=== PATIENT | male | born 1940 | race Caucasian/White ===

== ENCOUNTER → 2016-04-20 | Outpatient (CLI) | payer MEDICARE, OTHER | LOC: GMAL 11:23 | PROVIDERS: ATTEND Family Medicine | DX: N18.3 Chronic kidney disease, stage 3 (moderate) (principal) ==

== ENCOUNTER → 2016-06-15 | Outpatient (CLI) | payer MEDICARE, OTHER | END | disposition home or self-care (01) | LOC: GMAL 14:37 | PROVIDERS: ATTEND Family Medicine | DX: D51.3 Other dietary vitamin B12 deficiency anemia (principal); R97.20 Elevated prostate specific antigen [PSA]; E55.9 Vitamin D deficiency, unspecified; D53.9 Nutritional anemia, unspecified; R79.9 Abnormal finding of blood chemistry, unspecified | CPT/HCPCS: 82306; 82607; 82728; 83540; 83550; 83735; G0103 ==

== ENCOUNTER → 2016-06-24 | Outpatient (CLI) | payer MEDICARE, OTHER ==
--- NOTE | 2016-06-24 09:43 | CT ---
EXAM DESCRIPTION: Abdoment/Pelvis w/o Contrast CLINICAL HISTORY: ABN LIVER FUNCTION COMPARISON: None. TECHNIQUE: CT of the abdomen and pelvis was performed without contrast. Multiple axial images and multiplanar reconstructions were generated. FINDINGS: No acute findings within the lung bases. Multilevel degenerative change with significant facet degeneration the lower lumbar spine laminectomy of S1. Multiple hypodensities noted within an enlarged spleen. There are a few hypodensities noted within the liver on today's exam. The largest is seen along the posterior right hepatic lobe measuring 2.6 cm in diameter. The gallbladder is unremarkable. Bilateral adrenal glands and the pancreas are unremarkable. Bilateral kidneys are atrophic with multiple small cysts noted. The appendix is normal. The colon is evidence of diverticulosis. No evidence of diverticulitis. Small bowel is unremarkable. Urinary bladder is nondistended and not evaluated. The prostate measures 5 cm in diameter and is not enlarged. The abdominal aorta demonstrates atherosclerotic disease, but is not aneurysmal. IMPRESSION: 1. Today's exam demonstrates hypodensities noted within the kidneys, spleen and liver. These are likely compatible with cysts. If the patient has a possibility of a primary malignancy then an MRI or CT with contrast is suggested. If contrast cannot be administered then an ultrasound is suggested to evaluate these hypodensities. 2. Age-related findings as above. 3. No inflammatory changes on today's study. Electronically signed by: Jeferson Duff MD 06/24/2016 9:42 AM CDT
== END | disposition home or self-care (01) ==
LOC: CT 09:06
PROVIDERS: ATTEND Family Medicine
DX: R94.5 Abnormal results of liver function studies (principal)

== ENCOUNTER → 2016-07-07 | Outpatient (CLI) | payer MEDICARE, OTHER | END | disposition home or self-care (01) | LOC: GMAL 12:21 | PROVIDERS: ATTEND Family Medicine | DX: R97.20 Elevated prostate specific antigen [PSA] (principal) ==

== ENCOUNTER → 2016-07-21 | Outpatient (CLI) | payer MEDICARE, OTHER | LOC: GMAL 14:27 | PROVIDERS: ATTEND Family Medicine | DX: E29.1 Testicular hypofunction (principal) ==

== ENCOUNTER → 2016-07-22 | Outpatient (CLI) | payer MEDICARE, OTHER ==
--- NOTE | 2016-07-24 06:02 | MRI ---
EXAM DESCRIPTION: Noncontrast MRI of the right shoulder CLINICAL HISTORY: Shoulder pain COMPARISON: None TECHNIQUE: Multiplanar, multi sequence MRI images of the right shoulder were obtained without intra-articular contrast. FINDINGS: Marked ill definition and increased signal of the distal supraspinatus tendon near its insertion. There is favored to be a small full-thickness anterior leading edge supraspinatus tendon tear with minimal retraction. This measures approximately 8 mm on coronal image eight. There is a geographic region of bone marrow edema with a subtle rounded region of fatty marrow sparing within the region of edema centrally. This may represent contusive injury or be related to rotator cuff tear. There may be a small underlying greater tuberosity fracture. Correlate with plain films if not already performed. There is fluid decompressing into the subdeltoid/subacromial bursa as well as into the subcoracoid bursa. Infraspinatus, teres minor, and subscapularis tendons appear intact. No volumetric atrophy or fatty infiltration of the rotator cuff musculature. Long head of the biceps is well situated within the intertubercular groove. Biceps labral anchor is intact. Labrum is grossly intact. Severe degenerative changes of the acromioclavicular joint with joint effusion, osteophytosis as well as mild periarticular edema.. Type 2 acromion is noted. Glenohumeral joint cartilage is intact. No large joint effusion or loose body. Marrow signal is otherwise unremarkable without fracture or subluxation. IMPRESSION: 1. Small full-thickness tear of the anterior leading edge of the supraspinatus tendon with resultant fluid decompressing into the subdeltoid bursa. There is marked periarticular soft tissue edema about the anterior aspect of the humeral head as well as bone marrow edema in the greater tuberosity as outlined above. This may represent reactive marrow changes from rotator cuff pathology or a small fracture. Correlate with radiographs of the right shoulder is not performed. 2. Severe AC joint osteoarthrosis. Electronically signed by: Carmine Zaman MD 07/24/2016 6:02 AM CDT
== END | disposition home or self-care (01) ==
LOC: MRI 11:03
PROVIDERS: ATTEND Family Medicine
DX: M25.511 Pain in right shoulder (principal)

== ENCOUNTER → 2016-09-28 | Outpatient (CLI) | payer MEDICARE, OTHER | LOC: GMAL 14:50 | PROVIDERS: ATTEND Family Medicine | DX: E29.1 Testicular hypofunction (principal) ==

== ENCOUNTER → 2017-04-01 | Outpatient (CLI) | payer MEDICARE, OTHER | LOC: GMAB 13:44 | PROVIDERS: ATTEND Family Medicine | DX: M77.22 Periarthritis, left wrist (principal) ==

== ENCOUNTER → 2018-05-09 | Outpatient (CLI) | payer MEDICARE, OTHER | LOC: GMAL 14:48 | PROVIDERS: ATTEND Family Medicine | DX: D51.3 Other dietary vitamin B12 deficiency anemia (principal); E55.9 Vitamin D deficiency, unspecified ==

== ENCOUNTER → 2018-09-12 | Outpatient (CLI) | payer MEDICARE, OTHER | LOC: LAB.O 10:25 | PROVIDERS: ATTEND Family Medicine | DX: D63.8 Anemia in other chronic diseases classified elsewhere (principal) ==

== ENCOUNTER → 2019-01-09 | Outpatient (CLI) | payer MEDICARE, OTHER | LOC: GMAL 14:16 | PROVIDERS: ATTEND Family Medicine | DX: R97.20 Elevated prostate specific antigen [PSA] (principal); R53.83 Other fatigue; I10 Essential (primary) hypertension; E78.49 Other hyperlipidemia ==

== ENCOUNTER → 2019-05-28 | Outpatient (CLI) | payer MEDICARE, OTHER | LOC: GMAL 16:34 | PROVIDERS: ATTEND Family Medicine | DX: M25.561 Pain in right knee (principal) ==

== ENCOUNTER → 2019-08-28 | Outpatient (CLI) | payer MEDICARE, OTHER | LOC: GMAL 14:06 | PROVIDERS: ATTEND Family Medicine | DX: D51.3 Other dietary vitamin B12 deficiency anemia (principal); R53.83 Other fatigue; E55.9 Vitamin D deficiency, unspecified; E11.22 Type 2 diabetes mellitus with diabetic chronic kidney disease; E78.49 Other hyperlipidemia; I10 Essential (primary) hypertension ==

== ENCOUNTER → 2020-01-18 | Outpatient (CLI) | payer MEDICARE, OTHER ==
--- NOTE | 2020-01-19 11:06 | CT ---
EXAM DESCRIPTION: Abdoment/Pelvis w/o Contrast CLINICAL HISTORY: POLYCYSTIC KIDNEY ADULT TYPE COMPARISON: June 24, 2016 TECHNIQUE: Noncontrast transaxial CT images of the abdomen and pelvis are obtained. This exam was performed according to our departmental dose-optimization program, which includes automated exposure control, adjustment of the mA and/or kV according to patient size and/or use of iterative reconstruction technique . FINDINGS: Visualized lung bases show no acute findings. Enlarged liver measures 21.5 cm. Multiple fluid attenuation hepatic cysts are similar to previous exam. Largest in the right lobe measures 2.7 cm compared to 2.6 cm previously. Spleen is mildly enlarged at 13.4 cm with multiple fluid attenuation cysts measuring maximum 7.5 cm similar to previous. Small calcification in the tail of the pancreas. Moderate fatty infiltration of the pancreas is again seen. Gallbladder and bile ducts are unremarkable. Right adrenal adenoma measures 2.7 cm similar to previous. Moderate vascular calcifications. Kidneys are small with diffuse moderate to severe cortical thinning and multiple fluid attenuation cortical cysts similar in size and appearance from previous. Interval enlargement of a lesion in the midpole region of the right kidney now measures 3 cm with Hounsfield units of 34 image 63 of series 2 is seen. Left parapelvic cyst measures 3.9 cm stable from previous. Several calcifications in the kidneys bilaterally could represent vascular calcifications versus nonobstructing nephrolithiasis. No ureteral calcification or obstruction. Urinary bladder is mostly contracted with circumferential bladder wall thickening. The prostate is enlarged measuring 3.9 x 4.9 cm indenting the floor of the urinary bladder. Peritoneal dialysis catheter seen in the lower pelvis with small amount of ascites and trace free intraperitoneal air throughout the abdomen and pelvis. The appendix is normal. Stomach is poorly distended but unremarkable. No small bowel obstruction or bowel wall thickening. Moderate scattered diverticuli of the colon are seen without associated inflammatory changes or fluid collections. Mild increased volume of stool throughout the colon is seen. No pathologically enlarged abdominal or retroperitoneal lymphadenopathy. Osseous structures show no aggressive bony lesions. Bone graft donor site from the left iliac is seen with postsurgical changes to the lumbar spine noted. Severe disc degenerative disease at L2-3. IMPRESSION: No evidence of polycystic kidney disease is again seen. Suspicious increased attenuation lesion in the midpole the right kidney is new from previous measuring 3.0 cm. Recommend further evaluation with ultrasound or postcontrast imaging to determine cystic versus solid nature of this lesion and exclude renal cell carcinoma in patient with polycystic kidney disease. Hepatic and splenic cysts are seen compatible with polycystic kidney disease. Colon diverticulosis without CT evidence of diverticulitis. Other findings as described in body of the report. Electronically signed by: Michael Ellis MD 01/19/2020 11:04 AM CDT
== END ==
LOC: CT 09:00
PROVIDERS: ATTEND Internal Medicine
DX: Q61.2 Polycystic kidney, adult type (principal); K57.30 Diverticulosis of large intestine without perforation or abscess without bleeding; N28.9 Disorder of kidney and ureter, unspecified; K76.89 Other specified diseases of liver; D73.4 Cyst of spleen

== ENCOUNTER → 2020-01-25 | Outpatient (CLI) | payer MEDICARE, OTHER ==
--- NOTE | 2020-01-25 13:59 | US ---
EXAM DESCRIPTION: Renal: Ultrasound. CLINICAL HISTORY: 79 years Male A MASS ON KIDNEY RIGHT. Polycystic kidney disease. COMPARISON: CT scan abdomen January 17 and June 2016. TECHNIQUE: Transcutaneous scanning: Two-dimensional and Doppler modes. FINDINGS: Right kidney measures 10.7 x 5.7 x 5.7 cm; volume 183.8 ml. Mid-renal cortical thickness 5 mm . Increased cortical echogenicity, equal to the liver. Multiple cysts. In the region of interest, lateral mid cortex, a triangular-shaped anechoic/hypoechoic mass with minimal adjacent cortex measures 2.7 x 2.6 cm. Nonvascular. No definite solid mass in the region of interest. No hydronephrosis No echogenic stones. Lobulated contour of the kidney with no perinephric fluid. Normal vascularity. Proximal ureter not seen.. Left kidney measures 9.2 x 6.6 x 6.1 cm; volume 194.3 ml. Mid-renal cortical thickness 6 mm.. Cortical echogenicity greater than the liver. Multiple cysts. No hydronephrosis. No echogenic stones. Lobulated contour of the kidney with no perinephric fluid. Normal vascularity.. Proximal ureter not seen. Urinary bladder was visualized. No measurable volume. Ureteral jet in the bladder not seen by color Doppler. No free fluid. Abdominal aorta: Normal caliber from the proximal segment to the distal bifurcation. IMPRESSION: 1. Appearance of the bilateral kidneys consistent with the pedicle diagnosis of polycystic kidney disease. Right renal lateral cortical mass seen on recent CT scan appears more cystic than solid, maximum diameter 2.7 cm. No dominant solid mass. No echogenic stones or hydronephrosis. Electronically signed by: Medardo Grant MD 01/25/2020 1:57 PM CDT
== END ==
LOC: US 10:42
PROVIDERS: ATTEND Internal Medicine Nephrology
DX: N28.89 Other specified disorders of kidney and ureter (principal)

== ENCOUNTER 2020-01-27 16:02 | Emergency (ER) | payer MEDICARE, OTHER ==
--- NOTE | 2020-01-27 18:40 | CT ---
EXAM DESCRIPTION: Abdomen/Pelvis w/o Contrast CLINICAL HISTORY: 79 years Male diffuse abd pain, peritoneal dialysis COMPARISON: 01/18/2020. TECHNIQUE: Contiguous axial images obtained through the abdomen and pelvis without IV contrast. Reformatted images obtained. This exam was performed according to our department optimization program which includes automated exposure control, adjustment of the mA and/or kv according to patient size and/or use of iterative reconstruction technique. FINDINGS: There is free intraperitoneal gas consistent with known peritoneal dialysis. This was present on the previous exam although appears slightly greater on today's study. There is a complex lesion in the posterior right lobe of the liver which was present on the previous exam and appears unchanged. This is difficult to characterize on noncontrast CT may reflect hemangioma. This appears stable when compared to 2016. There are numerous low-attenuation foci in the spleen which appear stable when compared to 2016. Spleen is mildly enlarged. Pancreas is unremarkable. Low-attenuation mass in the right adrenal gland which is unchanged and is consistent with adenoma. No follow-up is recommended. Acquired cystic disease in the kidneys bilaterally with numerous areas of calcification. Urinary bladder is incompletely distended. No hydronephrosis or obstructive uropathy. Dialysis catheter in the pelvis. The gallbladder is visualized. No aneurysmal dilatation of the aorta. There is wall thickening in multiple loops of mildly distended bowel in the central abdomen. There is not a discrete zone of transition. Question enteritis or ileus. Fluid in the lower abdomen and pelvis consistent with peritoneal dialysate. IMPRESSION: There is free fluid and intraperitoneal gas in the abdomen likely related to peritoneal dialysis. This was present on the previous examination but appears increased. Findings were called to Dr. Misael Oscar at 6:37 PM central time. Development of wall thickening in multiple loops of central small bowel with mild distention. There is no discrete zone of transition. Findings suggest enteritis. Generalized ileus or developing partial obstruction not excluded. Stable low-attenuation lesions in the liver and spleen Cysts and calcifications in the kidneys bilaterally Additional chronic changes as above Electronically signed by: Tracy Lopes MD 01/27/2020 6:38 PM CDT
--- NOTE | 2020-01-27 19:06 | ED.PDOC ---
History of Present Illness - General Chief Complaint: Abdominal Pain Stated Complaint: abdominal pain,nausea Time Seen by Provider: 01/27/20 16:08 Source: patient Exam Limitations: no limitations - History of Present Illness Initial Comments: The patient is a 79-year-old male presented emergency room with his secondary to increasing abdominal pain over the last for 5 days. reports increased discoloration to the peritoneal fluid over the last for 5 days with his peritoneal dialysis. No definite fevers with the patient has been having some increased confusion. No nausea or vomiting but decreased oral intake. No syncope. He has had increased generalized weakness. No runny nose or cough or shortness of breath. No rash. On exam the patient does have diffuse tenderness to palpation of his abdomen and very mild distention. No evidence of significant erythema surrounding the catheter site. Timing/Duration: other Severity: moderate Improving Factors: nothing Worsening Factors: nothing Associated Symptoms: loss of appetite, malaise Allergies/Adverse Reactions: Allergies NO KNOWN ALLERGY Allergy (Verified 02/19/16 02:37) Home Medications: Ambulatory Orders Calcium Carbonate-Cholecalcife [Calcium/Vitamin D 600-400 mg-Unit] 1 tab PO BID 05/29/15 Chlorzoxazone [Parafon Forte DSC] 500 mg PO QID 05/29/15 Insulin Aspart [Novolog] 100 unit SC .SLIDING SCALE 05/29/15 Insulin Detemir [Levemir Pen] 22 units SUBCU DAILY 05/29/15 Multiple Vitamins W/ Minerals [Multi Vitamin/Minerals Fu] 1 tab PO DAILY 05/29/15 Nebivolol HCl [Bystolic] 10 mg PO BID 05/29/15 Nifedipine [Adalat cc] 90 mg PO DAILY 05/29/15 Nitroglycerin 0.4 mg Tab [Nitrostat] 0.4 mg SL Q5MIN PRN 05/29/15 Simvastatin [Zocor] 40 mg PO BEDTIME 05/29/15 Tamsulosin HCl [Flomax] 0.4 mg PO BEDTIME 05/29/15 Telmisartan 80 mg PO DAILY 05/29/15 Zinc 100 mg PO DAILY 05/29/15 Furosemide [Lasix] 20 mg PO BID #60 tab 06/01/15 Cephalexin Monohydrate [Keflex] 500 mg PO BID #14 cap 02/22/16 Review of Systems - Review of Systems Constitutional: States: weakness - Generalized EENTM: States: no symptoms reported Respiratory: States: no symptoms reported Cardiology: States: no symptoms reported Gastrointestinal/Abdominal: States: abdominal pain Genitourinary: States: no symptoms reported Musculoskeletal: States: no symptoms reported Skin: States: no symptoms reported Neurological: States: other - Mild intermittent confusion Endocrine: States: no symptoms reported All other Systems: No Change from Baseline Past Medical History (General) - Patient Medical History Hx Seizures: No Hx Stroke: No Hx Dementia: No Hx Asthma: No Hx of COPD: No Hx Cardiac Disorders: No Hx Congestive Heart Failure: Yes Hx Pacemaker: No Hx Hypertension: Yes Hx Thyroid Disease: No Hx Diabetes: Yes Hx Gastroesophageal Reflux: No Hx Renal Disease: Yes - acute Hx Cancer: No Hx of HIV: No Hx Hepatitis C: No Hx MRSA: No - Vaccination History Hx Tetanus, Diphtheria Vaccination: Yes - 5 YEARS AT LEAST BUT LESS THAN 10 Hx Influenza Vaccination: Yes Hx Pneumococcal Vaccination: Yes - Social History Hx Tobacco Use: Yes Hx Alcohol Use: No Hx Substance Use: No Hx Substance Use Treatment: No Hx Depression: No Hx Physical Abuse: No Hx Emotional Abuse: No Hx Suspected Abuse: No Family Medical History - Family History Mother Living Status: Age at (years of age): 87 Cause of : natural causes Hx Family Cancer: Yes Hx Family;Other: schizophrenia Father Living Status: Age at (years of age): 62 Cause of : drowning Physical Exam - Physical Exam General Appearance: Alert, No apparent distress Eye Exam: bilateral normal Ears, Nose, Throat: hearing grossly normal, normal pharynx Neck: full range of motion, supple Respiratory: lungs clear, normal breath sounds, no respiratory distress, no accessory muscle use Cardiovascular/Chest: normal peripheral pulses, regular rate, rhythm, no edema Peripheral Pulses: radial,right: 2+, radial,left: 2+ Gastrointestinal/Abdominal: other - Mild distention with diffuse tenderness to palpation. Rectal Exam: deferred Back Exam: no CVA tenderness, no vertebral tenderness Extremity: non-tender, normal inspection, no pedal edema, normal capillary refill Neurologic: academic physician II-XII nml as tested, alert, oriented x 3 - Mentation does appear somewhat slowed. No nuchal rigidity or meningeal signs. Skin Exam: normal color Comments: Vital Signs - 24 hr 10/18/20 10/18/20 10/18/20 16:22 17:00 18:00 Temperature 97.6 F Pulse Rate [ 95 H 83 85 Left Brachial] Respiratory 20 16 16 Rate Blood Pressure 135/77 158/88 131/81 [Left Arm] O2 Sat by Pulse 96 99 97 Oximetry Progress - Progress Progress: 01/27/20 19:07 The patient is a 79-year-old male presents emergency room with abdominal pain that is most likely peritonitis. White blood cell count is elevated. A blood culture has been done. I have discussed the patient with Dr. Borjas and he wants him sent to [facility] where additional work-up can be performed. No antibiotics have been given at this time. Vital signs are stable. The patient is being transferred for specialty care. mariann pepe [phone] - Results/Orders Results/Orders: CT scan of abdomen pelvis shows mild thickening of the bowel wall with mild dilation possibly consistent with early ileus or enteritis but no obstruction. There is some free air likely associated with the peritoneal dialysis catheter. Chronic findings otherwise. See report for more details. Laboratory Tests 01/27/20 01/27/20 01/27/20 16:55 16:55 16:55 WBC 13.2 H RBC 3.81 L Hgb 10.9 L Hct 33.1 L MCV 87.0 MCH 28.7 MCHC 33.0 RDW 16.4 H Plt Count 274 MPV 7.0 L Absolute Neuts (auto) 11.30 H Absolute Lymphs (auto) 1.20 Absolute Monos (auto) 0.60 Absolute Eos (auto) 0.00 Absolute Basos (auto) 0.00 Neutrophils % 85.4 H Lymphocytes % 9.4 L Monocytes % 4.9 Eosinophils % 0.1 L Basophils % 0.2 PT 10.7 INR 1.08 PTT (SP) 25.6 Sodium 136 Potassium 3.8 Chloride 89 L Carbon Dioxide 27 Anion Gap 23.8 H BUN 85 H Creatinine 10.57 H* BUN/Creatinine Ratio 8.0 L Random Glucose 135 H Serum Osmolality 299.8 H Lactic Acid Calcium 8.4 Magnesium 2.4 Total Bilirubin 0.9 AST 13 ALT 23 Alkaline Phosphatase 54 Creatine Kinase 90 CK-MB (CK-2) 10.2 H* CK-MB (CK-2) % Not Reportable Troponin I 0.19 H* Serum Total Protein 6.0 L Albumin 2.7 L Globulin 3.3 Albumin/Globulin Ratio 0.8 L Amylase 61 Lipase 25 01/27/20 16:55 WBC RBC Hgb Hct MCV MCH MCHC RDW Plt Count MPV Absolute Neuts (auto) Absolute Lymphs (auto) Absolute Monos (auto) Absolute Eos (auto) Absolute Basos (auto) Neutrophils % Lymphocytes % Monocytes % Eosinophils % Basophils % PT INR PTT (SP) Sodium Potassium Chloride Carbon Dioxide Anion Gap BUN Creatinine BUN/Creatinine Ratio Random Glucose Serum Osmolality Lactic Acid 2.2 Calcium Magnesium Total Bilirubin AST ALT Alkaline Phosphatase Creatine Kinase CK-MB (CK-2) CK-MB (CK-2) % Troponin I Serum Total Protein Albumin Globulin Albumin/Globulin Ratio Amylase Lipase Departure - Departure Clinical Impression: Peritonitis (acute) generalized Disposition: Transfer to Hospital Departure Forms: ED Discharge - Pt. Copy, Patient Portal Self Enrollment Referrals: Gregorio Wray III, MD [Primary Care Provider] - 1-2 Weeks Home Medications: Ambulatory Orders Calcium Carbonate-Cholecalcife [Calcium/Vitamin D 600-400 mg-Unit] 1 tab PO BID 05/29/15 Chlorzoxazone [Parafon Forte DSC] 500 mg PO QID 05/29/15 Insulin Aspart [Novolog] 100 unit SC .SLIDING SCALE 05/29/15 Insulin Detemir [Levemir Pen] 22 units SUBCU DAILY 05/29/15 Multiple Vitamins W/ Minerals [Multi Vitamin/Minerals Fu] 1 tab PO DAILY 05/29/15 Nebivolol HCl [Bystolic] 10 mg PO BID 05/29/15 Nifedipine [Adalat cc] 90 mg PO DAILY 05/29/15 Nitroglycerin 0.4 mg Tab [Nitrostat] 0.4 mg SL Q5MIN PRN 05/29/15 Simvastatin [Zocor] 40 mg PO BEDTIME 05/29/15 Tamsulosin HCl [Flomax] 0.4 mg PO BEDTIME 05/29/15 Telmisartan 80 mg PO DAILY 05/29/15 Zinc 100 mg PO DAILY 05/29/15 Furosemide [Lasix] 20 mg PO BID #60 tab 06/01/15 Cephalexin Monohydrate [Keflex] 500 mg PO BID #14 cap 02/22/16 Transfer to Outside Facility - Transfer Information Decision to Transfer Date: 01/27/20 Decision to Transfer Time: 19:08 Reason for Transfer: required specialist not available Accepting Provider:: dr salazar/oliverio Accepting Facility: [facility]
[2020-01-27 19:52] VITALS: BP 151/84; TEMP 97.7; O2SAT 98
== END 2020-01-27 20:00 | disposition short-term general hospital (02) ==
LOC: ER 16:02
DX: K65.0 Generalized (acute) peritonitis (principal); E11.22 Type 2 diabetes mellitus with diabetic chronic kidney disease; I13.2 Hypertensive heart and chronic kidney disease with heart failure and with stage 5 chronic kidney disease, or end stage renal disease; I50.9 Heart failure, unspecified; N18.6 End stage renal disease; Z99.2 Dependence on renal dialysis; Z79.4 Long term (current) use of insulin; Z87.891 Personal history of nicotine dependence; Z79.899 Other long term (current) drug therapy

== ENCOUNTER 2020-02-04 17:56 | Emergency (ER) | payer MEDICARE, OTHER ==
[2020-02-04] MEDS ORDERED: SODIUM CHLORIDE 0.9% (FLUSH) 10 ML SYG IV PRN (18:01)
--- NOTE | 2020-02-04 18:22 | ED.PDOC ---
History of Present Illness - General Chief Complaint: Neuro Symptoms/Deficits Stated Complaint: insomnia, diarrhea, fatigue Time Seen by Provider: 02/04/20 18:01 Source: patient, RN notes reviewed, Vital Signs reviewed, family - , RN/ - Dr. Wray Exam Limitations: no limitations - History of Present Illness Initial Comments: Patient is a 79-year-old white male who presents with worsening fatigue, diarrhea and confusion. Approximately 2 weeks ago patient was admitted at [facility] in [place] for spontaneous bacterial peritonitis. Patient has been on peritoneal dialysis for over a year. Patient was started on antibiotics and discharged home. Per the his diarrhea has worsened as well as his general medical condition is seem to deteriorated. He is more fatigued and now has some mild confusion. Nothing seems to make the symptoms better or worse. Timing/Duration: other - 2 days Severity: moderate Improving Factors: nothing Worsening Factors: nothing Associated Symptoms: loss of appetite, malaise, nausea/vomiting - Nausea only, weakness Allergies/Adverse Reactions: Allergies NO KNOWN ALLERGY Allergy (Verified 02/04/20 18:14) Home Medications: Ambulatory Orders Calcium Carbonate-Cholecalcife [Calcium/Vitamin D 600-400 mg-Unit] 1 tab PO BID 05/29/15 Chlorzoxazone [Parafon Forte DSC] 500 mg PO QID 05/29/15 Insulin Aspart [Novolog] 100 unit SC .SLIDING SCALE 05/29/15 Insulin Detemir [Levemir Pen] 22 units SUBCU DAILY 05/29/15 Multiple Vitamins W/ Minerals [Multi Vitamin/Minerals Fu] 1 tab PO DAILY 05/29/15 Nebivolol HCl [Bystolic] 10 mg PO BID 05/29/15 Nifedipine [Adalat cc] 90 mg PO DAILY 05/29/15 Nitroglycerin 0.4 mg Tab [Nitrostat] 0.4 mg SL Q5MIN PRN 05/29/15 Simvastatin [Zocor] 40 mg PO BEDTIME 05/29/15 Tamsulosin HCl [Flomax] 0.4 mg PO BEDTIME 05/29/15 Telmisartan 80 mg PO DAILY 05/29/15 Zinc 100 mg PO DAILY 05/29/15 Furosemide [Lasix] 20 mg PO BID #60 tab 06/01/15 Cephalexin Monohydrate [Keflex] 500 mg PO BID #14 cap 02/22/16 Amoxicillin & Pot Clavulanate [Augmentin Tab] 875 mg PO BID #14 tab 02/04/20 Review of Systems - Review of Systems Constitutional: States: see HPI, malaise, weakness. Denies: chills, fever EENTM: States: no symptoms reported. Denies: eye pain, blurred vision, double vision Respiratory: States: no symptoms reported. Denies: cough, short of breath, stridor Cardiology: States: no symptoms reported. Denies: chest pain, palpitations, syncope Gastrointestinal/Abdominal: States: abdominal pain - Generalized mild abdominal pain that is markedly improved since last week, but still there., diarrhea, nausea Genitourinary: States: other - Patient is anuric and has been for the last year Musculoskeletal: States: no symptoms reported. Denies: back pain, neck pain Skin: States: no symptoms reported. Denies: change in color, rash Neurological: States: see HPI, weakness. Denies: headache, numbness, tingling, tremors Endocrine: States: no symptoms reported. Denies: increased hunger, increased thirst Hematologic/Lymphatic: Denies: blood clots, easy bleeding All other Systems: No Change from Baseline Past Medical History (General) - Patient Medical History Hx Seizures: No Hx Stroke: No Hx Dementia: No Hx Asthma: No Hx of COPD: No Hx Cardiac Disorders: No Hx Congestive Heart Failure: Yes Hx Pacemaker: No Hx Hypertension: Yes Hx Thyroid Disease: No Hx Diabetes: Yes Hx Gastroesophageal Reflux: No Hx Renal Disease: Yes - acute Hx Cancer: No Hx of HIV: No Hx Hepatitis C: No Hx MRSA: No - Vaccination History Hx Tetanus, Diphtheria Vaccination: Yes - 5 YEARS AT LEAST BUT LESS THAN 10 Hx Influenza Vaccination: Yes Hx Pneumococcal Vaccination: Yes - Social History Hx Tobacco Use: Yes Hx Alcohol Use: No Hx Substance Use: No Hx Substance Use Treatment: No Hx Depression: No Hx Physical Abuse: No Hx Emotional Abuse: No Hx Suspected Abuse: No Family Medical History - Family History Mother Living Status: Age at (years of age): 87 Cause of : natural causes Hx Family Cancer: Yes Hx Family;Other: schizophrenia Father Living Status: Age at (years of age): 62 Cause of : drowning Physical Exam - Physical Exam General Appearance: Anxious, Obvious distress, Ill Appearing, Well Developed, Well Groomed, Well Hydrated, Well Nourished Eye Exam: bilateral normal Ears, Nose, Throat: hearing grossly normal, normal ENT inspection Neck: non-tender, full range of motion, supple Respiratory: chest non-tender, lungs clear, normal breath sounds, no respiratory distress, no accessory muscle use Cardiovascular/Chest: normal peripheral pulses, regular rate, rhythm, no edema, no gallop, no JVD, no murmur Peripheral Pulses: radial,right: 2+, radial,left: 2+ Gastrointestinal/Abdominal: normal bowel sounds, soft, no organomegaly, no pulsatile mass, tenderness - generalized, mild. 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 difficile, volume overload, sepsis among others. 02/04/20 19:56 Patient still with continued weakness. Unable to provide us a stool sample. He has had no diarrhea or vomiting while here. He still is fatigued and weak. He does have a newly elevated white count of 15,000 concerning for infection. He has continued abdominal pain. We will discussed this with Dr. Wray, his PCP and make a determination if we should send him back to [place]. Patient does have an elevated troponin at 0.19, but he has had this elevation previously and I think this is secondary to his renal failure. I discussed this plan of care with the patient and his and they voiced understanding and agreement to revisit disposition once have spoken with Dr. Wray. 02/04/20 20:[address] Wray, he is willing to see the patient in his office in the next day or 2. Will defer to patient's as to whether or not patient should be admitted or go home and add Augmentin to his medication regimen. I have discussed this matter with the and she opts for home treatment at this time. Plan on giving the patient a dose of Augmentin here and a prescription for same starting tomorrow. and patient are in agreement with the plan of care. Plan on discharge home at this time. Luisito Daley M.D. #[id number] - Results/Orders Results/Orders: 02/04/20 18:01 Sodium Chloride 0.9% (Flush) [Saline Flush Syringe] 10 ml IV PRN PRN URINE CULTURE W/COLONY COUNT Stat EKG Stat Pulse Ox Stat URINALYSIS Stat 02/04/20 18:19 FECAL OCCULT BLOOD Stat STOOL CULTURE Stat 02/04/20 18:20 BLOOD CULTURE Stat cdiff [CLOSTRIDIUM DIFFICILE AG/TOXIN] Stat 02/04/20 20:15 LACTIC ACID Q2H Laboratory Results - last 24 hr 02/04/20 02/04/20 02/04/20 18:20 18:26 18:26 WBC 15.0 H RBC 3.62 L Hgb 10.5 L Hct 31.2 L MCV 86.0 MCH 28.9 MCHC 33.5 RDW 16.6 H Plt Count 265 MPV 6.8 L Absolute Neuts (auto) 12.70 H Absolute Lymphs (auto) 1.40 Absolute Monos (auto) 0.70 Absolute Eos (auto) 0.10 Absolute Basos (auto) 0.00 Neutrophils % 85.0 H Lymphocytes % 9.6 L Monocytes % 4.7 Eosinophils % 0.4 L Basophils % 0.3 PT INR PTT (SP) Sodium 139 Potassium 3.1 L Chloride 96 L Carbon Dioxide 25 Anion Gap 21.1 H BUN 71 H Creatinine 12.57 H* BUN/Creatinine Ratio 5.6 L Random Glucose 109 H Serum Osmolality 299.0 H Lactic Acid 1.9 Calcium 8.3 L Total Bilirubin 0.8 AST 28 ALT 66 H Alkaline Phosphatase 72 Creatine Kinase 93 CK-MB (CK-2) 13.9 H* CK-MB (CK-2) % Not Reportable Troponin I 0.19 H* Serum Total Protein 5.9 L Albumin 2.8 L Globulin 3.1 Albumin/Globulin Ratio 0.9 L 02/04/20 18:26 WBC RBC Hgb Hct MCV MCH MCHC RDW Plt Count MPV Absolute Neuts (auto) Absolute Lymphs (auto) Absolute Monos (auto) Absolute Eos (auto) Absolute Basos (auto) Neutrophils % Lymphocytes % Monocytes % Eosinophils % Basophils % PT 10.5 INR 1.06 PTT (SP) 21.9 Sodium Potassium Chloride Carbon Dioxide Anion Gap BUN Creatinine BUN/Creatinine Ratio Random Glucose Serum Osmolality Lactic Acid Calcium Total Bilirubin AST ALT Alkaline Phosphatase Creatine Kinase CK-MB (CK-2) CK-MB (CK-2) % Troponin I Serum Total Protein Albumin Globulin Albumin/Globulin Ratio EKG performed 04 February 2020 at 1826 hrs. sinus rhythm with PACs at 91 bpm, minimal voltage criteria for LVH, ST and T wave flattening laterally concerning for ischemia, abnormal EKG. No comparison EKG available at this time. EXAM DESCRIPTION: Chest,1 View CLINICAL HISTORY: Confusion COMPARISON: Chest radiograph dated December 08, 2019 TECHNIQUE: One view radiograph of the chest FINDINGS: Mild calcific atherosclerosis of the aortic arch. Cardiac silhouette shows normal heart size. Pulmonary vascularity is within normal limits. Lungs show no confluent infiltrates. No pleural effusion. No pneumothorax. No acute osseous abnormality. IMPRESSION: No acute cardiopulmonary process. Electronically signed by: Gregorio Suarez MD 02/04/2020 6:36 PM CDT Vital Signs 02/04/20 02/04/20 02/04/20 18:01 18:15 19:35 Temperature 98.3 F 97.8 F Pulse Rate [ 88 92 H 93 H Left Radial] Respiratory 16 16 16 Rate Blood Pressure 178/106 158/109 [Left Arm] O2 Sat by Pulse 99 98 Oximetry Departure - Departure Clinical Impression: Malaise and fatigue Diarrhea Qualifiers: Diarrhea type: unspecified type Qualified Code(s): R19.7 - Diarrhea, unsp ecified Abdominal pain Qualifiers: Abdominal location: generalized Qualified Code(s): R10.84 - Generalized abdominal pain Time of Disposition: 20:55 Disposition: Discharge to Home or Self Care Condition: Fair Departure Forms: ED Discharge - Pt. Copy, Patient Portal Self Enrollment Instructions: Acute Abdomen (Belly Pain), Adult (DC), Peritonitis (DC) Diet: resume usual diet Activity: increase activity as tolerated Referrals: Gregorio Wray III, MD [Primary Care Provider] - 1-2 Days Prescriptions: Amoxicillin & Pot Clavulanate [Augmentin Tab] 875 mg PO BID #14 tab Home Medications: Ambulatory Orders Calcium Carbonate-Cholecalcife [Calcium/Vitamin D 600-400 mg-Unit] 1 tab PO BID 05/29/15 Chlorzoxazone [Parafon Forte DSC] 500 mg PO QID 05/29/15 Insulin Aspart [Novolog] 100 unit SC .SLIDING SCALE 05/29/15 Insulin Detemir [Levemir Pen] 22 units SUBCU DAILY 05/29/15 Multiple Vitamins W/ Minerals [Multi Vitamin/Minerals Fu] 1 tab PO DAILY 05/29/15 Nebivolol HCl [Bystolic] 10 mg PO BID 05/29/15 Nifedipine [Adalat cc] 90 mg PO DAILY 05/29/15 Nitroglycerin 0.4 mg Tab [Nitrostat] 0.4 mg SL Q5MIN PRN 05/29/15 Simvastatin [Zocor] 40 mg PO BEDTIME 05/29/15 Tamsulosin HCl [Flomax] 0.4 mg PO BEDTIME 05/29/15 Telmisartan 80 mg PO DAILY 05/29/15 Zinc 100 mg PO DAILY 05/29/15 Furosemide [Lasix] 20 mg PO BID #60 tab 06/01/15 Cephalexin Monohydrate [Keflex] 500 mg PO BID #14 cap 02/22/16 Amoxicillin & Pot Clavulanate [Augmentin Tab] 875 mg PO BID #14 tab 02/04/20
--- NOTE | 2020-02-04 18:37 | RAD ---
EXAM DESCRIPTION: Chest,1 View CLINICAL HISTORY: Confusion COMPARISON: Chest radiograph dated December 08, 2019 TECHNIQUE: One view radiograph of the chest FINDINGS: Mild calcific atherosclerosis of the aortic arch. Cardiac silhouette shows normal heart size. Pulmonary vascularity is within normal limits. Lungs show no confluent infiltrates. No pleural effusion. No pneumothorax. No acute osseous abnormality. IMPRESSION: No acute cardiopulmonary process. Electronically signed by: Gregorio Suarez MD 02/04/2020 6:36 PM CDT
[2020-02-04] MEDS ORDERED: AMOXICILLIN & POT CLAVULANATE 875 MG TAB PO ONE (20:52)
[2020-02-04 21:10] VITALS: BP 176/95; TEMP 97.1; O2SAT 96
== END 2020-02-04 21:13 | disposition home or self-care (01) ==
LOC: ER 17:56
DX: R19.7 Diarrhea, unspecified (principal); R10.84 Generalized abdominal pain; R53.81 Other malaise; E11.9 Type 2 diabetes mellitus without complications; N28.9 Disorder of kidney and ureter, unspecified; I11.0 Hypertensive heart disease with heart failure; I50.9 Heart failure, unspecified; Z79.4 Long term (current) use of insulin; Z79.899 Other long term (current) drug therapy

== ENCOUNTER → 2020-02-05 | Outpatient (CLI) | payer MEDICARE, OTHER | LOC: LAB.O 12:48 | PROVIDERS: ATTEND Emergency Medicine | DX: R10.9 Unspecified abdominal pain (principal) ==

== ENCOUNTER 2020-03-24 13:18 | Emergency (ER) | payer MEDICARE, OTHER ==
--- NOTE | 2020-03-24 13:27 | ED.PDOC ---
History of Present Illness - General Time Seen by Provider: 03/24/20 13:23 Source: patient, Vital Signs reviewed, EMS notes reviewed Additional Information: This is a 79-year-old male patient, poor historian but he has a history of diabetes history of peritoneal dialysis patient does not produce any urine anymore, patient former drinker former smoker presents to the ER because of generalized weakness and near syncope. It seems like patient whenever he stands up he feels lightheaded and dizzy. Patient has a history of anemia and his last hemoglobin was 7.5 about a week ago patient denies any blood in the urine coughing up blood or dark stools no known history of blood thinners patient denies any pain at the moment denies fever, chills, or any other complaints Patient's stated The patient has been passing out since Tuesday for as long as 5 minutes and it seems like it gets worse when he , but he actually feels her looks a lot better today, it seems taht it gets worse after he gets the peritoneal dialysis - History of Present Illness Timing/Duration: other - symptoms began Tuesday Improving Factors: nothing Worsening Factors: nothing Associated Symptoms: denies symptoms Allergies/Adverse Reactions: Allergies NO KNOWN ALLERGY Allergy (Verified 03/24/20 13:39) Home Medications: Ambulatory Orders Calcium Carbonate-Cholecalcife [Calcium/Vitamin D 600-400 mg-Unit] 1 tab PO BID 05/29/15 Chlorzoxazone [Parafon Forte DSC] 500 mg PO QID 05/29/15 Insulin Aspart [Novolog] 100 unit SC .SLIDING SCALE 05/29/15 Insulin Detemir [Levemir Pen] 22 units SUBCU DAILY 05/29/15 Multiple Vitamins W/ Minerals [Multi Vitamin/Minerals Fu] 1 tab PO DAILY 05/29/15 Nebivolol HCl [Bystolic] 10 mg PO BID 05/29/15 Nifedipine [Adalat cc] 90 mg PO DAILY 05/29/15 Nitroglycerin 0.4 mg Tab [Nitrostat] 0.4 mg SL Q5MIN PRN 05/29/15 Simvastatin [Zocor] 40 mg PO BEDTIME 05/29/15 Tamsulosin HCl [Flomax] 0.4 mg PO BEDTIME 05/29/15 Telmisartan 80 mg PO DAILY 05/29/15 Zinc 100 mg PO DAILY 05/29/15 Furosemide [Lasix] 20 mg PO BID #60 tab 06/01/15 Cephalexin Monohydrate [Keflex] 500 mg PO BID #14 cap 02/22/16 Amoxicillin & Pot Clavulanate [Augmentin Tab] 875 mg PO BID #14 tab 02/04/20 Review of Systems - Review of Systems Constitutional: States: weakness EENTM: States: no symptoms reported Respiratory: States: no symptoms reported Cardiology: States: no symptoms reported Gastrointestinal/Abdominal: States: no symptoms reported Genitourinary: States: no symptoms reported Musculoskeletal: States: no symptoms reported Skin: States: no symptoms reported Neurological: States: no symptoms reported Endocrine: States: no symptoms reported Hematologic/Lymphatic: States: no symptoms reported Past Medical History (General) - Patient Medical History Hx Seizures: No Hx Stroke: No Hx Dementia: No Hx Asthma: No Hx of COPD: No Hx Cardiac Disorders: No Hx Congestive Heart Failure: Yes Hx Pacemaker: No Hx Hypertension: Yes Hx Thyroid Disease: No Hx Diabetes: Yes Hx Gastroesophageal Reflux: No Hx Renal Disease: Yes - acute Hx Cancer: No Hx of HIV: No Hx Hepatitis C: No Hx MRSA: No - Vaccination History Hx Tetanus, Diphtheria Vaccination: Yes - 5 YEARS AT LEAST BUT LESS THAN 10 Hx Influenza Vaccination: Yes Hx Pneumococcal Vaccination: Yes - Social History Hx Tobacco Use: Yes Hx Alcohol Use: No Hx Substance Use: No Hx Substance Use Treatment: No Hx Depression: No Hx Physical Abuse: No Hx Emotional Abuse: No Hx Suspected Abuse: No Family Medical History - Family History Mother Living Status: Age at (years of age): 87 Cause of : natural causes Hx Family Cancer: Yes Hx Family;Other: schizophrenia Father Living Status: Age at (years of age): 62 Cause of : drowning Physical Exam - Physical Exam General Appearance: Other - chronically ill Eye Exam: bilateral normal Ears, Nose, Throat: hearing grossly normal, normal ENT inspection, normal pharynx Neck: non-tender, full range of motion, supple, normal inspection Respiratory: chest non-tender, normal breath sounds, no accessory muscle use Cardiovascular/Chest: normal peripheral pulses, regular rate, rhythm, no edema, no gallop, no JVD, no murmur Peripheral Pulses: radial,right: 2+, radial,left: 2+ Gastrointestinal/Abdominal: normal bowel sounds, non tender, soft, no organomegaly, no pulsatile mass Extremity: normal range of motion, non-tender, normal inspection, no pedal edema, no calf tenderness 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 Wray patient with blood work from today, his hemoglobin is actually better than it was a week ago, patient kidney function has remained pretty much stable from his last visit, EKG did not show any acute ischemic changes, patient troponins came back abnormal but this patient has a history of end-sta ge renal disease, and he has had consistent abnormal troponins from his previous visit, and patient does not have any chest pain so I suspect the patient's troponins today are due to renal failure and end-stage renal disease rather than acute coronary syndrome Patient's head CT is negative, then the patient will receive fluids and will be discharged home with outpatient follow-up with his primary care physician 03/24/20 14:12 03/24/20 14:[address] was did not show any intracranial abnormalities, I suspect the patient syncope is probably due to peritoneal dialysis, patient will receive a liter of normal saline, and will have him follow-up with his primary care physician as soon as possible To the ER immediately with any severe headaches nausea vomiting confusion altered mental status fever chills chest pain abdominal pain blood in the stools weakness sensation of fainting crushing chest pain rating to the back tingling chest pain with radiation to the left arm right arm both arms neck back or jaw excessive sweating shortness of breath or other concern 03/24/20 14:40 no chest Pain no shortness of breath or hypoxia prior to discharge Departure - Departure Clinical Impression: Syncope Qualifiers: Syncope type: unspecified Qualified Code(s): R55 - Syncope and collapse Disposition: Discharge to Home or Self Care Condition: Fair Instructions: Syncope (Fainting) (DC) Referrals: Gregorio Wray III, MD [Primary Care Provider] - 1-2 Weeks Home Medications: Ambulatory Orders Calcium Carbonate-Cholecalcife [Calcium/Vitamin D 600-400 mg-Unit] 1 tab PO BID 05/29/15 Chlorzoxazone [Parafon Forte DSC] 500 mg PO QID 05/29/15 Insulin Aspart [Novolog] 100 unit SC .SLIDING SCALE 05/29/15 Insulin Detemir [Levemir Pen] 22 units SUBCU DAILY 05/29/15 Multiple Vitamins W/ Minerals [Multi Vitamin/Minerals Fu] 1 tab PO DAILY 05/29/15 Nebivolol HCl [Bystolic] 10 mg PO BID 05/29/15 Nifedipine [Adalat cc] 90 mg PO DAILY 05/29/15 Nitroglycerin 0.4 mg Tab [Nitrostat] 0.4 mg SL Q5MIN PRN 05/29/15 Simvastatin [Zocor] 40 mg PO BEDTIME 05/29/15 Tamsulosin HCl [Flomax] 0.4 mg PO BEDTIME 05/29/15 Telmisartan 80 mg PO DAILY 05/29/15 Zinc 100 mg PO DAILY 05/29/15 Furosemide [Lasix] 20 mg PO BID #60 tab 06/01/15 Cephalexin Monohydrate [Keflex] 500 mg PO BID #14 cap 02/22/16 Amoxicillin & Pot Clavulanate [Augmentin Tab] 875 mg PO BID #14 tab 02/04/20 Additional Instructions: To the ER immediately with any severe headaches nausea vomiting confusion altered mental status fever chills chest pain abdominal pain blood in the stools weakness sensation of fainting crushing chest pain rating to the back tingling chest pain with radiation to the left arm right arm both arms neck back or jaw excessive sweating shortness of breath or other concern
--- NOTE | 2020-03-24 13:55 | RAD ---
EXAM DESCRIPTION: Chest,1 View CLINICAL HISTORY: 79 years Male, weakness COMPARISON: Previous study February 04, 2020 TECHNIQUE: AP portable chest. FINDINGS: Heart size is normal with normal pulmonary vascularity. No consolidating infiltrate. No pulmonary mass or worrisome nodule. No pneumothorax or pleural effusion. Bones are unremarkable. IMPRESSION: No acute process is identified in the chest. Electronically signed by: Kilo Saldaña MD 03/24/2020 1:53 PM [employer]INE OPERATOR
--- NOTE | 2020-03-24 14:38 | CT ---
EXAM DESCRIPTION: Head CLINICAL HISTORY: 79 years Male, syncope COMPARISON: None. TECHNIQUE: Axial images obtained from the skull base to the vertex without intravenous contrast with images. Coronal and sagittal reformations provided. This exam was performed according to our departmental dose-optimization program, which includes automated exposure control, adjustment of the mA and/or kV according to patient size and/or use of iterative reconstruction technique. Time Last Seen Well (If known) for Code Stroke: n/a FINDINGS: Brain Parenchyma, ventricles, meninges, and extra-axial spaces: Mild general cerebral atrophy. Mild Nonspecific white matter hypodensities in the cerebral hemispheres likely related to ischemic small vessel disease. Possible difficulty differentiating a small acute infarction given these hypodensities. No acute intracranial hemorrhage. No abnormal extra-axial fluid collection. Vascular: Atherosclerosis is within the carotid siphons. Calvarium, paranasal sinuses, mastoids, and orbits: Calvarium intact. 8 mm polyp or mucous changes cyst in the inferior left maxillary sinus.. Remaining paranasal sinuses and mastoid air cells are clear. Bilateral lens replacement. IMPRESSION: 1. No acute intracranial abnormality. 2. Senescent changes. Electronically signed by: Jean Pierre Craft MD 03/24/2020 2:36 PM [facility]
[2020-03-24 17:06] VITALS: BP 105/61; TEMP 97.7; O2SAT 94
== END 2020-03-24 16:50 | disposition home or self-care (01) ==
LOC: ER 13:18
DX: R55 Syncope and collapse (principal); R53.1 Weakness; E11.22 Type 2 diabetes mellitus with diabetic chronic kidney disease; N18.6 End stage renal disease; D64.9 Anemia, unspecified; I50.9 Heart failure, unspecified; I13.2 Hypertensive heart and chronic kidney disease with heart failure and with stage 5 chronic kidney disease, or end stage renal disease; Z79.4 Long term (current) use of insulin; Z20.828 Contact with and (suspected) exposure to other viral communicable diseases; Z99.2 Dependence on renal dialysis; Z87.891 Personal history of nicotine dependence